=== PATIENT | female | born 1990 | race Caucasian/White ===

== ENCOUNTER 2018-02-06 12:21 | Emergency (ER) | payer BC, OTHER ==
[~2018-02-06] VITALS: Ht 348 cm; Wt 67.0 kg
[~2018-02-06 12:21] MED LIST: PERC5TAB12 PO; PREN0.01 PO
[2018-02-06 12:33] VITALS: BP 179/80; PULSE 131; RESP 14; TEMP 98.3; O2SAT 99
[2018-02-06] MEDS ORDERED: PREN1PAK9 PO (13:00)
[2018-02-06 13:01] VITALS: BP 118/82; RESP 18
[2018-02-06 13:02] VITALS: BP 156/82; RESP 18
--- NOTE | 2018-02-06 13:42 | PD ---
HPI . Bleeding in Chief Complaint: Related Problem Time Seen by Provider: 12:37 Travel History International Travel<30 days: No Contact w/Intl Traveler<30days: No Traveled to known affect area: No History of Present Illness HPI This patient presents with chief complaint of bleeding and . She states that she is 15 weeks along. She reports 2 prior normal previous ultrasounds. The bleeding started today. She does not have any associated pelvic pain. She states that she has had 2 previous pregnancies complicated by placenta previa. Her blood type is A+. She states that she called her inpatient pharmacist to report the bleeding and that he told her to come here for evaluation. PFSH Past Medical History Medical History: Denies Significant Hx Cancer: No Cardiovascular Problems: No Diabetes: No Diminished Hearing: No Psychiatric: No Immunizations Current: Yes Seizures: No Thyroid Disease: No Ulcer: No Tetanus Vaccination: Unknown Influenza Vaccination: No ?: LMP: 10/25/17 : 1 Para: 1 Miscarriage: 0 : 0 Past Surgical History Section: Yes (TIMES 1) Other Surgery: No Social History Alcohol Use: No Tobacco Use: No Substance Use: No Allergies-Medications (Allergen,Severity, Reaction): Coded Allergies: Sulfa (Sulfonamide Antibiotics) (Unverified Allergy, Severe, 02/06/18) penicillin G (Unverified Allergy, Mild, Rash, 02/06/18) Reported Meds & Prescriptions Reported Meds & Active Scripts Active Reported + Complete Multi 18-0.8 & 290 mg ( Mv & Min W/Fe Prot Baron) 18 Mg Iron-800 Mcg-290 Mg-225 Mg Tej 1 Tab PO HS Review of Systems Except as stated in HPI: all other systems reviewed are Neg Physical Exam Narrative GENERAL: Awake and alert and in no acute distress. SKIN: Warm and dry. HEAD: Normocephalic/atraumatic. EYES: Pupils are equal. Extraocular movements are intact. NECK: Normal range of motion. CARDIOVASCULAR: Regular rate and rhythm. RESPIRATORY: Nonlabored respirations. : Scant blood in the vaginal vault. The blood appears old. The office is closed. MUSCULOSKELETAL: Atraumatic. NEUROLOGICAL: Nonfocal. PSYCHIATRIC: Appropriate mood and affect. Data Data Last Documented VS Vital Signs Date Time Temp Pulse Resp B/P (MAP) Pulse Ox O2 Delivery O2 Flow Rate FiO2 02/06/18 13:02 134 18 156/82 (106) 02/06/18 12:33 98.3 99 Orders Orders Orthostatic Vital Signs (02/06/18 12:41) Ed Discharge Order (02/06/18 13:37) MDM Medical Decision Making Medical Screen Exam Complete: Yes Emergency Medical Condition: Yes Differential Diagnosis Differential diagnosis of bleeding in includes but is not limited to physiologic bleeding, spontaneous AB, ectopic , placenta previa Narrative Course Patient presents for the evaluation of bleeding at about 15 weeks of . She refused CBC stating that she just had this done earlier today. She states that her bleeding is pretty scant. Cervical loss is closed. A fast look ultrasound shows positive movement and cardiac activity. Procedures Procedure Narrative Emergency Department Pelvic ultrasound was performed with patient consent. The curvilinear probe was used in the transverse and sagittal views within the suprapubic region revealing positive intrauterine . heart rate was present. movement is present. Diagnosis Primary Impression: Bleeding in early Patient Instructions: General Instructions Departure Forms: Tests/Procedures Disposition: DISCHARGE HOME Condition: Stable Jhoana Casanova MD February 06, 2018 13:42
== END 2018-02-06 14:03 | disposition home or self-care (01) ==
LOC: NEPD 12:21
DX: O20.9 Hemorrhage in early pregnancy, unspecified (principal); Z3A.15 15 weeks gestation of pregnancy; Z88.2 Allergy status to sulfonamides; Z88.0 Allergy status to penicillin
CPT/HCPCS: 99284

== ENCOUNTER 2018-07-25 03:57 | Inpatient (IN) ==
[2018-07-25] MEDS ORDERED: fentaNYL Citrate Inj 100 MCG/2 ML Ampul IV.PUSH PRN ×2 (04:41)
[2018-07-25] MEDS ORDERED: Oxytocin 30 Units/500ml Premix 30 UNITS/500 ML BAG IV.SIG ONE (04:41)
[2018-07-25] MEDS ORDERED: Sodium Chlor 0.9% Inj 500 ML IV.SIG PRN (04:41)
[2018-07-25] MEDS ORDERED: Sod Chloride 0.9% Inj 1,000 ML IV.CONT PRN (04:41)
[2018-07-25] MEDS ORDERED: Naloxone Inj 0.4 MG/ML Vial IV.PUSH PRN ×2 (04:41→13:36)
[2018-07-25] MEDS ORDERED: Citric Acid/Sodium Citrate Liq 30 ML UDC PO SCH (04:45)
--- NOTE | 2018-07-25 04:49 | P.HPOB ---
History of Present Illness Primary Care Physician: UNKNOWN Dr. Randolph Chief Complaint: Vaginal bleeding History of Present Illness: Patient is 28-year-old white female PCS and at 39 weeks tomorrow presents for evaluation of vaginal bleeding. She denies pain or leakage of fluid at this time. She does noticed some blood stain on her underwear and went to the bathroom and a lot of blood she described. NST is reactive and she is benny somewhat irregularly Weeks Gestation:: 39 Para: 2 : 3 Review of Systems All other systems reviewed negative except as stated in HPI PMFSH - Social History I have reviewed the patient's Social History: Yes - Tobacco History Smoking Status: Never smoker - Alcohol History How Often Do You Have a Drink Containing Alcohol: Never - Substance Use History Substance History: No History of Abuse - Travel History History of Recent Travel: No Recent Travel in the [facility] Within the Last 8 Weeks: No Recent Travel Out of the Country Within the Last 8 Weeks: No Medications and Allergies Active Medications: Active Medications Citric Acid/Sodium Citrate (Sodium Citrate/Citric Acid Liq) 30 ml PO [facility] Stop: 07/29/18 04:44 Fentanyl Citrate (Fentanyl Inj) 50 mcg IV.PUSH Q1H PRN PRN Reason: Pain Scale 3 - 5 Allergies Allergy/AdvReac Type Severity Reaction Status Date / Time Sulfa (Sulfonamide Allergy Severe Unverified 02/06/18 13:00 Antibiotics) penicillin G Allergy Mild Rash Unverified 02/06/18 13:00 Exam Vital signs: Vital Signs 07/25/18 04:10 07/25/18 04:12 07/25/18 04:15 Temperature 97.9 F Pulse Rate 113 H Respiratory Rate 18 Blood Pressure 138/73 Intake & Output 07/24/18 07/24/18 07/25/18 06:59 18:59 06:59 Weight 79.379 kg Narrative: GENERAL: Well-nourished, well-developed patient. SKIN: Warm and dry. HEAD: Normocephalic and atraumatic. EYES: No scleral icterus. No injection or drainage. ENT: No nasal drainage noted. Mucous membranes pink. Airway patent. NECK: Supple, trachea midline. No JVD. CARDIOVASCULAR: Regular rate and rhythm without murmurs, gallops, or rubs. RESPIRATORY: Breath sounds equal bilaterally. No accessory muscle use. BREASTS: Bilateral exam showed no masses , no retractions, no nipple discharge. ABDOMEN/GI: Abdomen soft, non-tender, bowel sounds present, no rebound, no guarding Gravid to [38-] weeks size Fundal Height: [-38] GENITOURINARY: External Genitalia: intact and normal in appearance BUS glands: [-] Cervix: [-post] Dilatation: [4-5-] Effacement: [90-] Station: [-3] Presentation: [vtx-] Membranes: [intact ] Uterine Contractions: [irreg-] FHT's: Category: [1-] Baseline: [134-] Reactive: [R-] Variability: [-mod] Decels: [-0] EXTREMITIES: No cyanosis or edema. BACK: Nontender without obvious deformity. No CVA tenderness. NEUROLOGICAL: Awake and alert. Motor and sensory grossly within normal limits. Five out of 5 muscle strength in all muscle groups. Normal speech. Caprini VTE Risk Assessment Caprini VTE Risk Assessment: No/Low Risk (score <= 1) Caprini Risk Assessment Model: Point Value = 1 Point Value = 2 Point Value = 3 Point Value = 5 Age 41-60 Minor surgery BMI > 25 kg/m2 Swollen legs Varicose veins or History of unexplained or recurrent spontaneous Oral contraceptives or hormone replacement Sepsis (< 1 month) Serious lung disease, including pneumonia (< 1 month) Abnormal pulmonary function Acute myocardial infarction Congestive heart failure (< 1 month) History of inflammatory bowel disease Medical patient at bed rest Age 61-74 Arthroscopic surgery Major open surgery (> 45 min) Laparoscopic surgery (> 45 min) Malignancy Confined to bed (> 72 hours) Immobilizing plaster cast Central venous access Age >= 75 History of VTE Family history of VTE Factor V Leiden Prothrombin [id number] Lupus anticoagulant Anticardiolipin antibodies Elevated serum homocysteine Heparin-induced thrombocytopenia Other congenital or acquired thrombophilia Stroke (< 1 month) Elective arthroplasty Hip, pelvis, or leg fracture Acute spinal cord injury (< 1 month) Prophylaxis Regimen: Total Risk Factor Score Risk Level Prophylaxis Regimen 0-1 Low Early ambulation 2 Moderate Order ONE of the following: *Sequential Compression Device (SCD) *Heparin 5000 units SQ BID 3-4 Higher Order ONE of the following medications: *Heparin 5000 units SQ TID *Enoxaparin/Lovenox 40 mg SQ daily (WT < 150 kg, CrCl > 30 mL/min) *Enoxaparin/Lovenox 30 mg SQ daily (WT < 150 kg, CrCl > 10-29 mL/min) *Enoxaparin/Lovenox 30 mg SQ BID (WT < 150 kg, CrCl > 30 mL/min) AND/OR *Sequential Compression Device (SCD) 5 or more Highest Order ONE of the following medications: *Heparin 5000 units SQ TID (Preferred with Epidurals) *Enoxaparin/Lovenox 40 mg SQ daily (WT < 150 kg, CrCl > 30 mL/min) *Enoxaparin/Lovenox 30 mg SQ daily (WT < 150 kg, CrCl > 10-29 mL/min) *Enoxaparin/Lovenox 30 mg SQ BID (WT < 150 kg, CrCl > 30 mL/min) AND *Sequential Compression Device (SCD) Assessment and Plan - Diagnosis (1) 38 weeks gestation of Code(s): Z3A.38 - 38 weeks gestation of Status: Acute (2) Previous section complicating Code(s): O34.219 - Maternal care for unspecified type scar from previous delivery Status: Acute (3) Desires (vaginal after ) trial Code(s): O34.219 - Maternal care for unspecified type scar from previous delivery Status: Acute (4) Uterine contractions during Code(s): O62.2 - Other uterine inertia Status: Acute - Plan This multiparous patient is in early labor with vaginal bleeding. She is 39 weeks she has had a and a delivery and desires another . She has had multiple ultrasounds that show she does not have a placenta previa Plan is admission of the hospital manage and augment labor as needed and anticipate vaginal delivery will notify her OB doctor
[2018-07-25 05:32] LABS: Bilirubin,Urine Negative (Negative); Clarity,Urine Hazy (Clear); Color,Urine Red (Yellw/Straw); Glucose,Urine (UA) Negative (Negative); Leukocyte Esterase,Urine Small (Negative); Mucus,Urine Few /lpf (Occasional); Nitrite,Urine Negative (Negative); Specific Gravity,Urine 1.011 (1.002-1.035); Squamous Epithelial Cell,Urine 7 /hpf (0-5)
[2018-07-25 05:33] LABS: Amphetamine Urine With Conf Neg (Neg); Benzodiazepine Urine With Conf Neg (Neg)
[2018-07-25 05:39] LABS: Baso % (Auto) 0.3 % (0.0-2.0); Eos # (Auto) 0.1 th/mm3 (0.0-0.4); Eos % (Auto) 0.6 % (0.0-4.0); Hematocrit 35.5 % (35.0-46.0); Hemoglobin 12.4 gm/dL (11.6-15.3); Lymph # (Auto) 2.4 th/mm3 (1.0-4.8); Lymph % (Auto) 16.2 % (9.0-44.0); Mean Corpuscular HGB Conc 35.1 % (32.0-36.0); Mean Corpuscular Hemoglobin 29.3 pg (27.0-34.0); Mean Corpuscular Volume 83.5 fL (80.0-100.0); Mean Platelet Volume 7.2 fL (7.0-11.0); Mono # (Auto) 0.7 th/mm3 (0.0-0.9); Mono % (Auto) 4.6 % (0.0-8.0); Neut # (Auto) 11.4 th/mm3 (1.8-7.7); Neut % (Auto) 78.3 % (16.0-70.0); Platelet Count 342 th/mm3 (150-450); Red Blood Count 4.25 mil/mm3 (4.00-5.30); Red Cell Distribution Width 12.7 % (11.6-17.2); White Blood Count 14.6 th/mm3 (4.0-11.0)
[2018-07-25] MEDS ORDERED: fentaNYL 2MCG-Bupiv 0.125% Epi 150 ML EPIDURAL ONE (10:05)
[2018-07-25] MEDS ORDERED: Lidocaaine 1.5%/Epinephrine 1:200,000 PF Inj 5 ML Amp ONE (10:24)
[2018-07-25] MEDS ORDERED: Lidocaine PF 1% Inj 5 ML Vial ONE (10:24)
[2018-07-25] MEDS ORDERED: fentaNYL Citrate Inj 100 MCG/2 ML Ampul EPIDURAL ONE (11:58)
[2018-07-25] MEDS ORDERED: fentaNYL 2MCG-Bupiv 0.125% Epi 150 ML EPIDURAL PRN (11:58)
[2018-07-25] MEDS ORDERED: Bisacodyl 10 MG Supp RECTAL PRN (13:36)
[2018-07-25] MEDS ORDERED: Benzocaine 20% Top Spray 60 ML Can TOPICAL PRN (13:36)
--- NOTE | 2018-07-25 13:36 | P.OBDELI ---
Weeks Gestation: 39 Patient Started Active Labor: Yes Active Labor Start Date: 07/25/18 Active Labor Start Time: 09:00 Medical Induction of Labor: No Artificial Rupture of Membrane: Yes Artificial ROM Date: 07/25/18 Anesthesia: Epidural Episiotomy: none Vaginal Delivery: Presentation: Occiput anterior Nuchal Cord: None Delayed Cord Clamping (45 sec): Yes Placenta: Spontaneous delivery, Intact, 3 vessel cord Laceration: 2 deg Repair: Chromic running Estimated blood loss (mL): 200
[2018-07-25] MEDS ORDERED: Oxytocin 30 Units/500ml Premix 30 UNITS/500 ML BAG IV.CONT PRN (15:15)
[2018-07-25] MEDS ORDERED: Acetaminophen 325 MG Tablet PO PRN (15:15)
[2018-07-25] MEDS ORDERED: Diphtheria/Tetanus/Pertussis Vaccine Inj 0.5 ML Syringe IM ONE (16:00)
[2018-07-25] MEDS ORDERED: Measles/Mumps/Rubella Vaccine Inj 0.5 ML Vial SQ ONE (16:00)
[2018-07-25] MEDS: Senna/Docusate Sodium 8.6/50 MG Tablet PO SCH (20:57)
[2018-07-25] MEDS: Witch Hazel 50%/Glyderin 12.5% 40 Pad Jar RECTAL PRN (20:57)
[2018-07-25] MEDS ORDERED: Zolpidem Tartrate 5 MG Tablet PO PRN (21:00)
--- NOTE | 2018-07-26 08:48 | P.PNOB ---
Subjective Post day: 1 Interval history: doing well yesterday Objective Vital Signs/I&O: Vital Signs 07/25/18 10:20 07/25/18 10:40 07/25/18 10:42 Temperature 98.9 F Pulse Rate 116 H 137 H 112 H Respiratory Rate 18 Blood Pressure 120/82 135/91 H 125/74 07/25/18 10:45 07/25/18 10:50 07/25/18 10:56 Temperature Pulse Rate 119 H 118 H 117 H Respiratory Rate 18 Blood Pressure 120/84 121/78 111/73 07/25/18 11:00 07/25/18 11:11 07/25/18 11:16 Temperature Pulse Rate 99 H 102 H 102 H Respiratory Rate Blood Pressure 118/79 119/69 111/81 07/25/18 11:19 07/25/18 11:31 07/25/18 12:00 Temperature 97.7 F Pulse Rate 81 87 Respiratory Rate 18 Blood Pressure 126/82 124/79 07/25/18 12:31 07/25/18 13:00 07/25/18 13:26 Temperature Pulse Rate 76 108 H 126 H Respiratory Rate Blood Pressure 116/69 134/74 129/75 07/25/18 13:42 07/25/18 13:58 07/25/18 14:15 Temperature 98.0 F Pulse Rate 92 H 112 H Respiratory Rate 18 18 18 Blood Pressure 124/72 104/57 L 07/25/18 14:30 07/25/18 15:15 07/25/18 15:45 Temperature 98.0 F Pulse Rate 75 73 Respiratory Rate 18 16 Blood Pressure 107/93 H 140/78 131/76 07/25/18 19:56 Temperature 97.9 F Pulse Rate 74 Respiratory Rate 18 Blood Pressure 120/72 Result Diagrams: 07/25/18 05:20 Objective Remarks: GENERAL: Well-nourished, well-developed patient. . ABDOMEN/GI: Abdomen soft, non-tender. Fundus: Firm, non-tender at umbilicus. GENITOURINARY: Light to moderate bleeding. EXTREMITIES: No cyanosis or edema, non-tender, without signs of DVT. Medications and IVs: Active Medications Acetaminophen (Tylenol) 650 mg PO Q4H PRN PRN Reason: PAIN SCALE 1 TO 2 Al Hydroxide/Mg Hydroxide (Milk Of Magnesia Liq) 30 ml PO Q12H PRN PRN Reason: Mild Constipation Benzocaine (Americaine 20% [place]) 1 spray TOPICAL Q4H PRN PRN Reason: For Perineum Discomfort Last Admin: 07/25/18 20:56 Dose: 1 spray Bisacodyl (Dulcolax Supp) 10 mg RECTAL DAILY PRN PRN Reason: SEVERE CONSITIPATION Ephedrine Sulfate (Ephedrine/Ns Syringe) 10 mg IV.PUSH UNSCH PRN PRN Reason: SEE LABEL COMMENTS Stop: 07/26/18 11:58 Fentanyl/Bupivacaine/Sodium Chlor (Fentanyl 2 Mcg-Bupiv 0.125% Epi) 150 mls @ 12 mls/hr EPIDURAL PRN PRN PRN Reason: for Labor Pain Oxytocin (Pitocin 30 Units/Ns 500 Ml Premix) 30 units in 500 mls @ 100 mls/hr IV.CONT UNSCH PRN PRN Reason: Heavy bleeding Ibuprofen (Motrin) 800 mg PO Q8H PRN PRN Reason: For Cramping Lactulose (Lactulose Liq) 30 ml PO DAILY PRN PRN Reason: SEVERE CONSITIPATION Miscellaneous Information (Misc Information) 1 each OTHER UNSCH PRN PRN Reason: SEE LABEL COMMENTS Stop: 07/26/18 11:58 Miscellaneous Information (Misc Information) 1 each OTHER UNSCH PRN PRN Reason: SEE LABEL COMMENTS Stop: 07/26/18 11:58 Naloxone HCl (Narcan Inj) 0.1 mg IV.PUSH Q2M PRN PRN Reason: for opiate reversal Ondansetron HCl (Zofran Odt) 4 mg PO Q6H PRN PRN Reason: NAUSEA OR VOMITING Oxycodone/Acetaminophen (Percocet 5/325 Mg) 2 tab PO Q4H PRN PRN Reason: PAIN SCALE 6 TO 10 Oxycodone/Acetaminophen (Percocet 5/325 Mg) 1 tab PO Q4H PRN PRN Reason: PAIN SCALE 3 TO 5 Senna/Docusate Sodium (Nicole-Colace) 1 tab PO BID [facility] Last Admin: 07/25/18 20:57 Dose: 1 tab Sennosides (Senokot) 17.2 mg PO Q12H PRN PRN Reason: Moderate Constipation Sodium Chloride (Ns Flush) 2 ml IV.FLUSH BID [facility] Last Admin: 07/25/18 20:57 Dose: 1 ml Sodium Chloride (Ns Flush) 2 ml IV.FLUSH PRN PRN PRN Reason: FLUSH AFTER USING IV ACCESS Witch Judy/Glycerin (Tucks Pads) 1 applicatio RECTAL QID PRN PRN Reason: HEMORRHOIDS Last Admin: 07/25/18 20:57 Dose: 1 applicatio Zolpidem Tartrate (Ambien) 5 mg PO HS PRN PRN Reason: SLEEP Assessment and Plan - Plan This patient had and is ready to go home Discharge Planning: DC home
--- NOTE | 2018-07-26 08:54 | P.DS ---
Date of admission: 07/25/18 04:47 Primary care physician: UNKNOWN Brief History from admission: Patient came in in labor and without difficulty Stayed in hospital 24 hours and ready for DC home DS: Diagnosis - Discharge Diagnosis (1) (vaginal after ) Status: Acute DS: Summary Hospital Course: in active labor ant 38 6/7 weeks - Time Spent with Patient Total time spent providing and/or coordinating discharge services: Less than 30 minutes Exam Vital signs: Vital Signs 07/25/18 10:20 07/25/18 10:40 07/25/18 10:42 Temperature 98.9 F Pulse Rate 116 H 137 H 112 H Respiratory Rate 18 Blood Pressure 120/82 135/91 H 125/74 07/25/18 10:45 07/25/18 10:50 07/25/18 10:56 Temperature Pulse Rate 119 H 118 H 117 H Respiratory Rate 18 Blood Pressure 120/84 121/78 111/73 07/25/18 11:00 07/25/18 11:11 07/25/18 11:16 Temperature Pulse Rate 99 H 102 H 102 H Respiratory Rate Blood Pressure 118/79 119/69 111/81 07/25/18 11:19 07/25/18 11:31 07/25/18 12:00 Temperature 97.7 F Pulse Rate 81 87 Respiratory Rate 18 Blood Pressure 126/82 124/79 07/25/18 12:31 07/25/18 13:00 07/25/18 13:26 Temperature Pulse Rate 76 108 H 126 H Respiratory Rate Blood Pressure 116/69 134/74 129/75 07/25/18 13:42 07/25/18 13:58 07/25/18 14:15 Temperature 98.0 F Pulse Rate 92 H 112 H Respiratory Rate 18 18 18 Blood Pressure 124/72 104/57 L 07/25/18 14:30 07/25/18 15:15 07/25/18 15:45 Temperature 98.0 F Pulse Rate 75 73 Respiratory Rate 18 16 Blood Pressure 107/93 H 140/78 131/76 07/25/18 19:56 Temperature 97.9 F Pulse Rate 74 Respiratory Rate 18 Blood Pressure 120/72 - Constitutional no acute distress Results Procedures completed during hospitalization: Discharge Plan - Discharge Disposition Patient Disposition: 01 Discharge Home - Discharge Order Discharge Orders: Discharge Order (Routine); Ordered 07/26/18 Ordered By: Antoine Majano - Physicians Team Primary Care Provider: UNKNOWN, Attending Provider: Antoine Majano
[2018-07-26 08:58] VITALS: TEMP 98
[2018-07-26] MEDS: Senna/Docusate Sodium 8.6/50 MG Tablet PO SCH ×2 (13:33→23:24)
[2018-07-27] MEDS: Witch Hazel 50%/Glyderin 12.5% 40 Pad Jar RECTAL PRN (05:34)
--- NOTE | 2018-07-27 08:32 | P.PNOB ---
Subjective Post day: 1 Interval history: doing well S/P CS for breech in labor. Her baby is in NICU Objective Vital Signs/I&O: Vital Signs 07/26/18 20:00 Temperature 98.0 F Pulse Rate 61 Respiratory Rate 18 Blood Pressure 120/81 Result Diagrams: 07/25/18 05:20 Objective Remarks: GENERAL: Well-nourished, well-developed patient. ABDOMEN/GI: Abdomen soft, non-tender. Fundus: Firm, non-tender at umbilicus. GENITOURINARY: Light to moderate bleeding. EXTREMITIES: No cyanosis or edema, non-tender, without signs of DVT. Medications and IVs: Active Medications Acetaminophen (Tylenol) 650 mg PO Q4H PRN PRN Reason: PAIN SCALE 1 TO 2 Al Hydroxide/Mg Hydroxide (Milk Of Magnesia Liq) 30 ml PO Q12H PRN PRN Reason: Mild Constipation Benzocaine (Americaine 20% [place]) 1 spray TOPICAL Q4H PRN PRN Reason: For Perineum Discomfort Last Admin: 07/25/18 20:56 Dose: 1 spray Bisacodyl (Dulcolax Supp) 10 mg RECTAL DAILY PRN PRN Reason: SEVERE CONSITIPATION Fentanyl/Bupivacaine/Sodium Chlor (Fentanyl 2 Mcg-Bupiv 0.125% Epi) 150 mls @ 12 mls/hr EPIDURAL PRN PRN PRN Reason: for Labor Pain Oxytocin (Pitocin 30 Units/Ns 500 Ml Premix) 30 units in 500 mls @ 100 mls/hr IV.CONT UNSCH PRN PRN Reason: Heavy bleeding Ibuprofen (Motrin) 800 mg PO Q8H PRN PRN Reason: For Cramping Lactulose (Lactulose Liq) 30 ml PO DAILY PRN PRN Reason: SEVERE CONSITIPATION Naloxone HCl (Narcan Inj) 0.1 mg IV.PUSH Q2M PRN PRN Reason: for opiate reversal Ondansetron HCl (Zofran Odt) 4 mg PO Q6H PRN PRN Reason: NAUSEA OR VOMITING Oxycodone/Acetaminophen (Percocet 5/325 Mg) 2 tab PO Q4H PRN PRN Reason: PAIN SCALE 6 TO 10 Oxycodone/Acetaminophen (Percocet 5/325 Mg) 1 tab PO Q4H PRN PRN Reason: PAIN SCALE 3 TO 5 Senna/Docusate Sodium (Nicole-Colace) 1 tab PO BID [facility] Last Admin: 07/26/18 23:24 Dose: Not Given Sennosides (Senokot) 17.2 mg PO Q12H PRN PRN Reason: Moderate Constipation Sodium Chloride (Ns Flush) 2 ml IV.FLUSH BID [facility] Last Admin: 07/26/18 23:24 Dose: Not Given Sodium Chloride (Ns Flush) 2 ml IV.FLUSH PRN PRN PRN Reason: FLUSH AFTER USING IV ACCESS Witch Judy/Glycerin (Tucks Pads) 1 applicatio RECTAL QID PRN PRN Reason: HEMORRHOIDS Last Admin: 07/27/18 05:34 Dose: 1 applicatio Zolpidem Tartrate (Ambien) 5 mg PO HS PRN PRN Reason: SLEEP Assessment and Plan - Diagnosis (1) (vaginal after ) Code(s): O34.219 - Maternal care for unspecified type scar from previous delivery Status: Acute - Plan This patient had and is ready to go home Discharge Planning: [place] home
[2018-07-27 09:37] VITALS: BP 130/78; PULSE 70; RESP 20
[2018-07-27] MEDS: Senna/Docusate Sodium 8.6/50 MG Tablet PO SCH (09:51)
== END 2018-07-27 10:57 | disposition home or self-care (01) ==
LOC: HOBED 03:57 → H2E 04:47 → H1EA 15:02
PROVIDERS: ADMIT Obstetrics & Gynecology; ATTEND Obstetrics & Gynecology